=== PATIENT | female | born 1960 | race Caucasian/White ===

== ENCOUNTER 2017-12-30 02:04 | Outpatient (CLI) | payer BC, SELFPAY ==
[2017-12-30 08:29] LABS: TSH (W/Ref FT4) 1.34 uIU/mL (0.358-3.74)
[2017-12-30 08:33] LABS: Hemoglobin A1C 5.2 % (4.5-6.2)
[2017-12-31 09:36] LABS: Hepatitis C Ab w Rflx HCV PCR Negative (NEGAT)
== END 2017-12-30 02:24 ==
PROVIDERS: PCP Family Medicine; Visit Provider Family Medicine
DX: R73.03 Prediabetes (principal); E03.9 Hypothyroidism, unspecified; Z00.00 Encounter for general adult medical examination without abnormal findings; Z11.59 Encounter for screening for other viral diseases
CPT/HCPCS: 36415; 86803; 83036; 84443

== ENCOUNTER 2018-03-09 00:40 | Outpatient (CLI) | payer BC, SELFPAY ==
--- NOTE | 2018-03-09 09:01 | DI.MAMMO_ITS ---
SYMPTOMS/DIAGNOSIS: SCREENING, Z12.31 MAMMOGRAM: Mammograms were interpreted according to the usual protocol including computer analysis with CAD system, tomosynthesis and C view imaging. Comparison is made with exams from 2012 through 2017. The breasts are composed of scattered fibroglandular densities, breast density Category B. No suspicious masses or suspicious microcalcifications are seen. There has been no significant change. IMPRESSION: Category I B, negative mammogram. Yearly screening mammography is recommended. [facility] ASSESSMENT OF FINDINGS: Negative. Category 1. Patient will receive a letter notifying them of these results. BI-RADS category B. There are scattered areas of fibroglandular density.
== END 2018-03-09 01:00 ==
PROVIDERS: PCP Family Medicine; Visit Provider Family Medicine
DX: Z12.31 Encounter for screening mammogram for malignant neoplasm of breast (principal)
CPT/HCPCS: 77063; 77067

== ENCOUNTER 2021-01-16 19:23 | Outpatient (REF) | payer BC, SELFPAY ==
[2021-01-16 17:44] LABS: BUN 16 mg/dL (7-18); CREATININE 0.7 mg/dL (0.55-1.02); Calcium 9.7 mg/dL (8.5-10.1); Chloride 104 mmol/L (98-107); Glucose 87 mg/dL (74-106); Potassium 4.1 mmol/L (3.5-5.1); Sodium 141 mmol/L (136-145)
== END 2021-01-16 19:24 | disposition home or self-care (01) ==
LOC: NCHCN 19:23
PROVIDERS: PCP Family Medicine; Visit Provider Family Medicine
DX: E03.9 Hypothyroidism, unspecified (principal); Z00.00 Encounter for general adult medical examination without abnormal findings
CPT/HCPCS: 80048; 84443

== ENCOUNTER 2021-04-09 01:03 | Outpatient (CLI) | payer BC, SELFPAY ==
--- NOTE | 2021-04-09 | DI.MAMMO_ITS ---
Exam(s) MAMMO SCREENING EXAM: MAMMO SCREENING CLINICAL HISTORY: SCREENING MAMMO FOR BREAST CANCER Z12.31 TECHNIQUE: Mammograms were interpreted according to the usual protocol including computer analysis w [employer] CAD system, tomosynthesis and C-view imaging. COMPARISON: 2011 through 2020 FINDINGS: The breasts are composed of scattered fibroglandular densities, Breast Density category B. No suspicious masses or suspicious microcalcifications are seen. No skin thickening or abnormal axillary lymph nodes are seen. There has been no significant change from prior exams. IMPRESSION: BI-RADS Category 1, Negative mammogram Yearly screening mammography is recommended. Breast Density - Category B, scattered fibroglandular densities. A negative radiographic report should not delay biopsy if a dominant or clinically suspicious mass is present. Up to ten percent of cancers are not identified on mammography. A negative report may reinforce clinical impression. Adenosis and dense breasts may obscure an underlying neoplasm. False positive reports average 6 to 10%. Patient will receive a letter notifying them of these results.
== END 2021-04-09 01:23 ==
PROVIDERS: PCP Family Medicine; Visit Provider Family Medicine
DX: Z12.31 Encounter for screening mammogram for malignant neoplasm of breast (principal)
CPT/HCPCS: 77063; 77067

== ENCOUNTER 2022-02-26 16:41 | Outpatient (REF) | payer BC, SELFPAY ==
[2022-02-27 10:50] LABS: HIV-1/2 Ag & Ab Screen Negative (Negative)
== END 2022-02-26 16:42 | disposition home or self-care (01) ==
LOC: NCHCN 16:41
PROVIDERS: PCP Family Medicine; Visit Provider Family Medicine
DX: E03.9 Hypothyroidism, unspecified (principal); Z00.00 Encounter for general adult medical examination without abnormal findings; Z11.4 Encounter for screening for human immunodeficiency virus [HIV]
CPT/HCPCS: 87389; 84443

== ENCOUNTER 2022-06-14 09:10 | Outpatient (REF) | payer BC, SELFPAY ==
[2022-06-14 16:07] LABS: ALT 18 U/L (14-59); AST 15 U/L (15-37); Albumin 4.1 g/dL (3.4-5.0); Alkaline Phosphatase 83 U/L (46-116); Bilirubin, Direct 0.1 mg/dL (0.0-0.2); Bilirubin, Total 0.6 mg/dL (0.2-1.0); Total Protein 7.2 g/dL (6.4-8.2)
== END 2022-06-14 09:11 | disposition home or self-care (01) ==
LOC: NCHCN 09:10
PROVIDERS: PCP Family Medicine; Visit Provider Family Medicine
DX: B35.1 Tinea unguium (principal); Z79.899 Other long term (current) drug therapy; Z51.81 Encounter for therapeutic drug level monitoring
CPT/HCPCS: 80076

== ENCOUNTER 2022-07-26 00:53 | Outpatient (CLI) | payer BC, SELFPAY ==
--- NOTE | 2022-07-26 12:45 | DI.MAMMO_ITS ---
Exam(s) MAMMO SCREENING EXAM: MAMMO SCREENING CLINICAL HISTORY: SCREENING, Z12.31. TECHNIQUE: Bilateral full field digital CC and MLO mammographic images were obtained with 3D tomosyn thesis and utilizing computer aided detection (CAD). COMPARISON: Prior mammograms were reviewed. FINDINGS: There has been no significant change in the appearance and distribution of the fibroglandular tissue. There are no CAD designations. No new significant findings in left breast. In the right breast asymmetric density-possible nodule seen on CC view measuring approximately 1.7 by 0.4 cm located 3 cm in nipple on CC. Spot compression recommended. There is no significant architectural distortion nor skin thickening-retraction. IMPRESSION: 1. No radiographic evidence of malignancy in left breast. 2. Asymmetric density-possible nodule right breast. Spot compression view ultrasound recommended. BI-RADS Category 0 - Assessment Incomplete: Need additional imaging evaluation Breast Density - Category B - Scattered areas of fibroglandular density Breast density Category C or D implies that the patient has dense breast tissue. Dense breast tissue can make it harder to find cancer on a mammogram. Dense breast tissue is also associated with an incr eased risk of breast cancer. This information about the result of the mammogram report was provided to the patient to raise their awareness. Use this report when you speak with the patient about their risks for breast cancer, which includes their family history. At that time, you may recommend additional screening tests (Ultrasoun d or MRI) as these tests may add significant information. A negative radiographic report should not delay biopsy if a dominant or clinically suspicious mass is present. Up to ten percent of cancers are not identified on mammography. A negative report may reinforce clinical impression. Adenosis and dense breasts may obscure an underlying neoplasm. False positive reports average 6 to 10%. Patient will receive a letter notifying them of these results.
== END 2022-07-26 01:13 ==
LOC: DI 00:53
PROVIDERS: PCP Family Medicine; Visit Provider Family Medicine
DX: Z12.31 Encounter for screening mammogram for malignant neoplasm of breast (principal)
CPT/HCPCS: 77063; 77067

== ENCOUNTER 2022-08-02 00:39 | Outpatient (CLI) | payer BC, SELFPAY ==
--- NOTE | 2022-08-02 | DI.MAMMO_ITS ---
Exam(s) MG MAMMO SCREEN CALL BACK UNI EXAM: MG MAMMO SCREEN CALL BACK UNI CLINICAL HISTORY: ASYMMETRIC DENSITY-POSSIBLE NODULE RT BREAST R92.8 ABNL MAMMO. TECHNIQUE: Craniocaudal and mediolateral oblique Full Field Digital Mammography views of the right b reast with Computer Aided Diagnosis. COMPARISON: Comparison is made with prior examinations. FINDINGS: Mammography/Tomosynthesis: Masses/Architectural Distortion: The nodular area of concern corresponds to a mole on the patient's r ight breast. There is an unchanged nodule in the outer right breast. Microcalcifictions: No suspicious pleomorphic-type are seen. Skin Thickening/Nipple Retraction: None. IMPRESSION: 1. No evidence of malignancy is noted. 2. Unless there is more urgent need, follow-up screening mammography is recommended, as per [employer] guidelines. 3. The findings were discussed with the patient on the date of the examination. BI-RADS Category 2 - Benign Findings Breast Density - Category B - Scattered areas of fibroglandular density Breast density Category C or D implies that the patient has dense breast tissue. Dense breast tissue can make it harder to find cancer on a mammogram. Dense breast tissue is also associated with an incr eased risk of breast cancer. This information about the result of the mammogram report was provided to the patient to raise their awareness. Use this report when you speak with the patient about their risks for breast cancer, which includes their family history. At that time, you may recommend additional screening tests (Ultrasoun d or MRI) as these tests may add significant information. A negative radiographic report should not delay biopsy if a dominant or clinically suspicious mass is present. Up to ten percent of cancers are not identified on mammography. A negative report may reinforce clinical impression. Adenosis and dense breasts may obscure an underlying neoplasm. False positive reports average 6 to 10%. Patient will receive a letter notifying them of these results.
== END 2022-08-02 00:59 ==
LOC: DI 00:39
PROVIDERS: PCP Family Medicine; Visit Provider Family Medicine
DX: Z12.31 Encounter for screening mammogram for malignant neoplasm of breast (principal); R92.8 Other abnormal and inconclusive findings on diagnostic imaging of breast
CPT/HCPCS: 77063; 77067

== ENCOUNTER 2023-03-17 11:17 | Outpatient (REF) | payer BC, SELFPAY ==
--- OUTSIDE RECORDS SUMMARY | 2023-03-17 11:21 | XMS_ITS | Continuity of Care Document ---
Author Name Unknown Organization [facility] Address [address] [place] [id number] Care Team Providers Care Manager Statistical Name Role Phone WARNER PEREZ Primary Care Physician [phone] Encounter [facility] NBR [id number] Date(s): 08/21/22 - 08/21/22 [facility] [address] [place] [address] [place] Discharge Disposition: Home Assessment and Plan Future Appointments Problem List Condition Confirmation Course Effective Dates Status H ealth Status Informant Subjective tinnitus of both ears Confirmed Active Bilateral sensorineural hearing loss Confirmed Active Patient Care team information Care Team Personnel Name: WARNER PEREZ Position: No Access Member Role: Primary Care Physician Address: Address: [address] [place] [address] Care Team Related Persons Name: YUNI AUSTIN Address: Home [address] [place], [place] [id number] [facility]
--- OUTSIDE RECORDS SUMMARY | 2023-03-17 11:21 | XMS_ITS | Continuity of Care Document ---
Author Name Unknown Organization [facility] Ambulatory Clinics Address [address] [place] [address] Care Team Providers Care Steel Floor Pan Placing Supervisor Name Role Phone WARNER PEREZ Primary Care Physician Encounter [facility] NBR [id number] Date(s): 08/21/22 - 08/21/22 [facility] [address] [place] [address]- Encounter Diagnosis Bilateral sensorineural hearing loss(Discharge Diagnosis) - 08/22/22 Subjective tinnitus of both ears(Discharge Diagnosis) - 08/22/22 Discharge Disposition: Home or Self Care Attending Physician: Zeferino Cazares Assessment and Plan Future Appointments Problem List Condition Confirmation Course Effective Dates Status H ealth Status Informant Subjective tinnitus of both ears Confirmed Active Bilateral sensorineural hearing loss Confirmed Active Physician Outpatient Note * Zeferino Cazares: PERFORM Event Display: Office Clinic Note Physician Authored Date: [id number] MAKENZIE LOPEZ :1960 Age:62 years Sex:Female Visit Date:08/21/2022 Primary Care Physician: WARNER PEREZ History of Present Illness Patient arrived to today's appointment by herself. ??Patient was referred by primary care doctor due to patient concerns of??hearing loss.?? Patient arrived to today's appointment with concerns of??bilateral sensorineural hearing loss??that was first diagnosed in middle school following the start of bilateral humming tinnitus??at the same time.?? Patient reports??in the??late 60s early 70s??doctors told her parents that there is nothing??that could be done??for this sort of??hearing loss and??patient has not sought treatment or seen a professional for this??known bilateral hearing loss and tinnitus??until this time.?? Patient does believe hearing loss is??gradually decreased over the past 2years, patient reports she is now missing enough??of conversations where it is impacting her??life.?? Patient reports tiny bilateral humming tinnitus??her entire life,??possibly??has always been there, but became more forward when she went from gradeschool to middle school.?? Patient reports havingtinnitus worse??when stressed,??sounds like an emergency broadcast??system but softer. ??Patient had her hearing tested when she went from grade school to middle school??due to concerns of bilateral tonal tinnitus. ??She remembers??being seen by a doctor who told her she could??not hear certain tones??and that nothing could be done.?? Patient has never worn hearing aids.?? No history of??ear surge ry.?? Patient does report instance of vertigo??that happened twice over a decade ago. ??Patient reports she was told she had an inner ear infection, possibly vestibular neuritis,??and was given meclizine at the time. ??Patient denies any further instances of vertigo, but never had??a VNG or other??testing of the vestibular system to confirm??this diagnosis. ??Patient denies any unilateral hearingloss or tinnitus associated with these vertiginous episodes. ??Patient does report??family history of hearing loss in her sister, single-sided deafness??in her sister, her sister eventually??went on to be unilateral cochlear implant user.?? Patient denies history of occupational or recreational noise exposure. Physical Exam Otoscopy revealed clear canals with tympanic membranes visualized bilaterally. Procedure Today's results revealed mild sloping to moderate sensorineural hearing loss bilaterally.?? Speech bilingual medical receptionist thresholds were found at 30 dB HL in the right ear and 25 dB HL in the left ear.?? Speech discrimination scores were excellent (100%)??bilaterally at a presentation level of 70 dB HL. Assessment/Plan 1.??Bilateral sensorineural hearing loss??H90.3 Today's results reveal mild to moderate??sensorineural hearing loss bilaterally with??excellent speech discrimination and elevated levels.?? Patient possibly has??congenital hearing loss, but at least??late onset??pediatric sensorineural hearing loss??that has been??untreated. ??Patient is an excellent hearing aid candidate, recommend trial of binaural amplification bilaterally. 2.??Subjective tinnitus of both ears??H93.13 Patient's bilateral??total??tinnitus has been??lifelong??and relatively constant and unchanged, likely??secondary to bilateral??pediatric onset sensorineural hearing loss. Patient is still an excellent candidate for bilateral amplification discussed various options. ??Patient preferred??behind the ear MAN??rechargeable hearing aids. ??Patient has expected $4000 benefitfrom insurance.?? Reviewed different styles, technology levels, manufactures, blue tooth options, and acoustic coupling. ?? Earmold impressions were taken bilaterally without incident, post otoscopy unremarkable. ?? Patient scheduled for hearing aid fitting and trial of binaural amplification. Problem List/Past Medical History Ongoing No qualifying data Historical No qualifying data Medications No active medications Allergies No active allergies Electronically Signed on 08/22/22 07:52 AM Zeferino Cazares Patient Care team information Care Team Personnel Name: WARNER PEREZ Position: No Access Member Role: Primary Care Physician Address: Address: [address] [place] [address]- Care Team Related Persons Name: YUNI LOPEZ Address: [address] [id number] [facility]
--- OUTSIDE RECORDS SUMMARY | 2023-03-17 11:21 | XMS_ITS | Continuity of Care Document ---
Author Name Unknown Organization [facility] Ambulatory Clinics Address [address] [place] [address] Care Team Providers Care Steam Drier Tender Name Role Phone WARNER PEREZ Primary Care Physician [phone] Encounter [facility] NBR [id number] Date(s): 11/01/22 - 11/01/22 [facility] Ambulatory Clinics [address] [place], [place] [phone] [place] Discharge Disposition: Home or Self Care Attending Physician: Zeferino Cazares Assessment and Plan Future Appointments Problem List Condition Confirmation Course Effective Dates Status H ealth Status Informant Subjective tinnitus of both ears Confirmed Active Bilateral sensorineural hearing loss Confirmed Active Audiology Note * Conchis Jones: PERFORM Event Display: Audiology Office Clinic Note Authored Date: [id number] Patient Care team information Care Team Personnel Name: WARNER PEREZ Position: No Access Member Role: Primary Care Physician Address: Address: [address] [place] [address] [place] Care Team Related Persons Name: YUNI AUSTIN Address: Home [address] [place], [place] [id number] [facility]
[2023-03-17 16:46] LABS: ALT 25 U/L (14-59); AST 17 U/L (15-37); Albumin 4.1 g/dL (3.4-5.0); Alkaline Phosphatase 76 U/L (46-116); Bilirubin, Direct 0.2 mg/dL (0.0-0.2); Bilirubin, Total 0.6 mg/dL (0.2-1.0); FREE T4 1.43 ng/dL (0.76-1.46); TSH 0.27 uIU/mL (0.36-3.74); Total Protein 6.8 g/dL (6.4-8.2)
== END 2023-03-17 11:18 | disposition home or self-care (01) ==
LOC: NCHCN 11:17
PROVIDERS: PCP Family Medicine; Visit Provider Family Medicine
DX: E03.9 Hypothyroidism, unspecified (principal); Z79.899 Other long term (current) drug therapy; Z51.81 Encounter for therapeutic drug level monitoring
CPT/HCPCS: 80076; 84439; 84443

== ENCOUNTER 2023-06-09 14:15 | Outpatient (REF) | payer BC, SELFPAY ==
[2023-06-09 16:26] LABS: Calculated LDL 101 mg/dL (<100); Cholesterol 178 mg/dL (<200); HDL Cholesterol 71 mg/dL (40-60); TSH (W/Ref FT4) 0.63 uIU/mL (0.36-3.74); Triglyceride 32 mg/dL (<150)
== END 2023-06-09 14:16 | disposition home or self-care (01) ==
LOC: NCHCN 14:15
PROVIDERS: PCP Family Medicine; Visit Provider Family Medicine
DX: E03.9 Hypothyroidism, unspecified (principal); Z13.6 Encounter for screening for cardiovascular disorders
CPT/HCPCS: 80061; 84443

== ENCOUNTER → 2023-07-28 02:10 | Outpatient (CLI) | payer BC, SELFPAY ==
--- NOTE | 2023-07-28 | DI.MAMMO_ITS ---
Exam(s) MAMMO SCREENING EXAM: MAMMO SCREENING CLINICAL HISTORY: SCREENING, Z12.31 TECHNIQUE: Mammograms were interpreted according to the usual protocol including computer analysis w [employer] CAD system, tomosynthesis and C-view imaging. COMPARISON: 2014 through 2022 FINDINGS: The breasts are composed of scattered fibroglandular densities, Breast Density category B. No suspicious masses or suspicious microcalcifications are seen. No skin thickening or abnormal axillary lymph nodes are seen. There has been no significant change from prior exams. IMPRESSION: BI-RADS Category 1, Negative mammogram Yearly screening mammography is recommended. Breast Density - Category B, scattered fibroglandular densities. A negative radiographic report should not delay biopsy if a dominant or clinically suspicious mass is present. Up to ten percent of cancers are not identified on mammography. A negative report may reinforce clinical impression. Adenosis and dense breasts may obscure an underlying neoplasm. False positive reports average 6 to 10%. Patient will receive a letter notifying them of these results.
--- NOTE | 2023-07-28 | DI.DEXA_ITS ---
Exam(s) XR DEXA BONE DENSITY W/WO TERI EXAM: XR DEXA BONE DENSITY W/WO TERI CLINICAL HISTORY: ASYMPTOMATIC MENOPAUSAL STATE, Z78.0 TECHNIQUE: [employer] Horizon C densitometer analysis of left hip, lumbar spine and left forearm. Lat eral survey image of the thoracic and lumbar spine. COMPARISON: No exams were available for comparison FINDINGS: Lateral view of the thoracic and lumbar spine shows no evidence of compression fractures. Bone mineral density measurements of the lumbar spine correspond to a total T-score of -2.7, in the osteoporotic range. Bone mineral density measurements of the left hip correspond to a total T-score of -1.5. The femora l neck T-score is -2.0, in the osteopenic range.. Theleft forearm bone mineral density measurements correspond to a T-score of the distal 3rd of -1.6, in the osteopenic range. IMPRESSION: Osteopenia of the hip and forearm. Osteoporosis of the spine.
== END ==
PROVIDERS: PCP Family Medicine; Visit Provider Family Medicine
DX: Z12.31 Encounter for screening mammogram for malignant neoplasm of breast (principal); Z13.820 Encounter for screening for osteoporosis; Z78.0 Asymptomatic menopausal state; M81.0 Age-related osteoporosis without current pathological fracture
CPT/HCPCS: 77063; 77067; 77080

== ENCOUNTER 2023-08-01 13:51 | Outpatient (REF) | payer BC, SELFPAY ==
[2023-08-01 20:21] LABS: Vitamin D 25 Total 43.9 ng/mL (30-100)
== END 2023-08-01 13:52 | disposition home or self-care (01) ==
LOC: NCHCN 13:51
PROVIDERS: PCP Family Medicine; Visit Provider Family Medicine
DX: M81.0 Age-related osteoporosis without current pathological fracture (principal)
CPT/HCPCS: 82306

== ENCOUNTER 2023-11-27 15:09 | Outpatient (REF) | payer BC, SELFPAY ==
[2023-11-27 17:07] LABS: Hemoglobin A1C 5.1 % (<5.7)
== END 2023-11-27 15:10 | disposition home or self-care (01) ==
LOC: NCHCN 15:09
PROVIDERS: PCP Family Medicine; Visit Provider Family Medicine
DX: Z13.1 Encounter for screening for diabetes mellitus (principal)
CPT/HCPCS: 83036

== ENCOUNTER 2024-04-21 03:06 | Outpatient (CLI) | payer BC, SELFPAY ==
--- NOTE | 2024-04-21 | DI.CT_ITS ---
Exam(s) CT BRAIN CTA EXAM: CT BRAIN CTA CLINICAL HISTORY: Fam h/o aneurysm of blood vessel of brain, Z82.49-fam h/o ischemic heart. TECHNIQUE: Imaging Protocol: Axial CT angiography was performed with multi-slice acquisition and mu lti-planar and/or 3D reconstructions. CONTRAST MATERIAL: Intravenous: Omnipaque 350 contrast volume:70 mL COMPARISON: No exams were available for comparison FINDINGS: CT Head W/O: Ventricles and Extra axial spaces: Normal in size and morphology for the patient's age. Hemorrhage: None. Cerebral parenchyma: No evidence of an acute territorial infarct. No acute mass effect. Note is made of an empty sella. Midline shift: None. Brainstem/Cerebellum: Normal. Calvarium: Normal. Visualized Paranasal sinuses/Mastoids: Clear. Soft Tissues: Unremarkable. Enhancement: Unremarkable. CTA Brain W: Internal Carotid Arteries: No aneurysm, occlusion or significant stenosis. Anterior Cerebral Arteries: Right: No aneurysm, occlusion or significant stenosis. Left: No aneurysm, occlusion or significant stenosis. Middle Cerebral Arteries: Right: No aneurysm, occlusion or significant stenosis. Left: No aneurysm, occlusion or significant stenosis. Posterior cerebral Arteries: Right: No aneurysm, occlusion or significant stenosis. Left: No aneurysm, occlusion or significant stenosis. Vertebral Arteries: Right: No aneurysm, occlusion or significant stenosis. Left: No aneurysm, occlusion or significant stenosis. Basilar Artery: No aneurysm, occlusion or significant stenosis. IMPRESSION: 1. No evidence of large vessel occlusion or significant stenosis on the CT angiography of the head. 2. No evidence of an intracranial aneurysm in the dhpzax-ob-Iwzjzp. 3. No acute intracranial process. RADIATION DOSE DELIVERED: 2,074.58mGy.cm Total DLP 2,074.58mGy.cm Total DLP 2,074.58mGy.cm Total DLP DATA REPOSITORY: All CT scans at this facility are submitted to the National Radiology Data Registry (NRDR) Dose Index Registry (DIR) with the [employer] (ACR). RADIATION OPTIMIZATION: All CT scans at this facility use at least one of these dose optimization te chniques: automated exposure control; mA and/or kV adjustment per patient size (includes targeted exa ms where dose is matched to clinical indication); or iterative reconstruction.
[2024-04-21 08:52] LABS: CREATININE 0.7 mg/dL (0.55-1.02); Estimated GFR 95.92 (mL/min/1.73m2)
[2024-04-21 08:58] LABS: Hemoglobin A1C 5.2 % (<5.7)
[2024-04-21] MEDS: Normal Saline - Diluent 50 ML VIAL IJ (09:07)
[2024-04-21] MEDS: Omnipaque 350 MG/ML 100 ML BTL 70 ML IJ (09:08)
== END 2024-04-21 03:26 ==
LOC: DI 03:06
PROVIDERS: PCP Family Medicine; Visit Provider Family Medicine
DX: Z82.49 Family history of ischemic heart disease and other diseases of the circulatory system (principal); Z13.6 Encounter for screening for cardiovascular disorders
CPT/HCPCS: 70496; 82565; 83036; J3490

== ENCOUNTER 2024-05-06 10:03 | Outpatient (CLI) | payer BC, SELFPAY ==
[2024-05-06 09:03] LABS: TSH (W/Ref FT4) 0.43 uIU/mL (0.36-3.74)
== END 2024-05-06 10:04 | disposition home or self-care (01) ==
LOC: LBO 10:04
PROVIDERS: PCP Family Medicine; Visit Provider Family Medicine
DX: E03.9 Hypothyroidism, unspecified (principal)
CPT/HCPCS: 36415; 84443

== ENCOUNTER 2024-10-12 16:09 | Outpatient (CLI) | payer MEDICARE, BC, SELFPAY ==
--- NOTE | 2024-10-12 | DI.MAMMO_ITS ---
Exam(s) MAMMO SCREENING EXAM: MAMMO SCREENING CLINICAL HISTORY: SCREENING, Z12.31 TECHNIQUE: Mammograms were interpreted according to the usual protocol including computer analysis with CAD system, tomosynthesis and C-view imaging. COMPARISON: 2015 through 2023 FINDINGS: The breasts are composed of scattered fibroglandular densities, Breast Density category B. No suspicious masses or suspicious microcalcifications are seen. No skin thickening or abnormal axillary lymph nodes are seen. There has been no significant change from prior exams. IMPRESSION: BI-RADS Category 1, Negative mammogram Yearly screening mammography is recommended. Breast Density - Category B - There are scattered areas of fibroglandular density. Breast density Category C or D implies that the patient has dense breast tissue. Dense breast tissue can make it harder to find cancer on a mammogram. Dense breast tissue is also associated with an increased risk of breast cancer. This information about the result of the mammogram report was provided to the patient to raise their awareness. Use this report when you speak with the patient about their risks for breast cancer, which includes their family history. At that time, you may recommend additional screening tests (Ultrasound or MRI) as these tests may add significant information. A negative radiographic report should not delay biopsy if a dominant or clinically suspicious mass is present. Up to ten percent of cancers are not identified on mammography. A negative report may reinforce clinical impression. Adenosis and dense breasts may obscure an underlying neoplasm. False positive reports average 6 to 10%. Patient will receive a letter notifying them of these results.
== END 2024-10-12 16:29 ==
LOC: DI 16:09
PROVIDERS: PCP Family Medicine; Visit Provider Family Medicine
DX: Z12.31 Encounter for screening mammogram for malignant neoplasm of breast (principal); R92.323 Mammographic fibroglandular density, bilateral breasts
CPT/HCPCS: 77063; 77067